=== PATIENT | female | born 1980 | race Caucasian/White ===

== ENCOUNTER 2019-10-08 11:23 | Emergency (ER) | payer BC ==
--- OUTSIDE RECORDS SUMMARY | 2019-10-08 11:26 | XMS REPORT ---
:1980 Author Organization [facility] t Address [address] [place] [address] [facility]. [address] [place] [address] Care Team Providers Name Role Phone DR MILAGRO Unavailable Unavailable Problems This patient has no known problems. Allergies, Adverse Reactions, Alerts This patient has no known allergies or adverse reactions. Medications This patient has no known medications. Results Test Description Test Time Test Comments Text Results Atomic Results Result Comments GLUCOMETER GLUCOSE- LAB USE ONLY 2017-04-08 05:26:00 Test Item Value Reference Range Comments GLUCOMETER (test code = GMG) 102 mg/dL 70-100 Met er ID: [id number]: [id number] GREGORY SHRESTHA URINE MONOCLONALFB2017-04-08 05:16:00 Test Item Value Reference Range Comments PREG UR (test code = PGU) NEGATIVE NEGATIVE
[2019-10-08 12:13] LABS: Basophils % 0.5 % (0-1.3); Hematocrit 45.5 % (36.0-45.0); Lymphocytes % 32.9 % (15.3-44.8); MPV 8.5 fL (7.6-11.3)
[2019-10-08 12:14] LABS: Protime INR 0.92
[2019-10-08 12:26] LABS: Urine Specific Gravity 1.025 (1.005-1.030)
[2019-10-08 12:26] LABS: Urine Blood NEGATIVE (NEG); Urine Glucose NEGATIVE (NEG); Urine Protein NEGATIVE (NEG); Urine Specific Gravity 1.025 (1.005-1.030); Urine pH 5.5 (5.0-7.0)
[2019-10-08 12:36] LABS: ALT/SGPT 36 U/L (12-78); AST/SGOT 22 U/L (15-37); Albumin 3.6 g/dL (3.4-5.0); Alkaline Phosphatase 57 U/L (45-117); BUN Blood Urea Nitrogen 15 mg/dL (7-18); Bicarbonate 24 mmol/L (21-32); Bilirubin Direct 0.1 mg/dL (0-0.2); Bilirubin Total 0.3 mg/dL (0.2-1.0); Glucose Level 116 mg/dL (74-106); Magnesium 2.1 mg/dL (1.8-2.4); Potassium 3.9 mmol/L (3.5-5.1); Protein, Total 8.1 g/dL (6.4-8.2); Sodium Level 139 mmol/L (136-145); Troponin (Emerg Dept Use Only) < 0.02 ng/mL (0.0-0.045)
[2019-10-08 12:43] LABS: Urine Bacteria 20-50 /HPF (<20); Urine Culture Reflex Order NOT NEEDED; Urine RBC <5 /HPF (NONE SEEN)
--- NOTE | 2019-10-08 12:44 | RAD REPORT ---
EXAM DESCRIPTION: Melonie Single View10/08/2019 12:39 pm CLINICAL HISTORY: Palpitations COMPARISON: none FINDINGS: The lungs appear clear of acute infiltrate. The heart is normal size IMPRESSION: No acute abnormalities displayed
[2019-10-08] MEDS ORDERED: NITROFURAN MACRO 100 MG CAP PO ONE (13:02)
[2019-10-08] MEDS ORDERED: PROPRANOLOL HCL 40 MG TAB PO ONE (13:15)
--- NOTE | 2019-10-08 15:36 | RAD REPORT ---
EXAM DESCRIPTION: CT - Chest For Pe Angio - 10/08/2019 3:06 pm CLINICAL HISTORY: sob COMPARISON: None. TECHNIQUE: Dynamically enhanced axial 3 mm thick images of the chest were obtained during administra tion of <100> mL Isovue 370 IV contrast. Coronal and oblique reconstruction images were generated and reviewed. Exam utilizes a protocol for optimal evaluation of pulmonary arterial tree. Maximum intensity projections 3D imaging was utilized All CT scans are performed using dose optimization technique as appropriate and may include automated exposure control or mA/KV adjustment according to patient size. FINDINGS: Some of the images are degraded by patient motion artifact A pulmonary embolus is not seen. A thoracic aortic aneurysm is not noted. A pleural effusion is not seen. A pericardial effusion is not seen. A lung consolidation is not present. 11 millimeter left thyroid nodule IMPRESSION: Negative for a pulmonary embolism. 11 millimeter left thyroid nodule. Ultrasound in 6 months recommended for re-evaluation
--- NOTE | 2019-10-08 15:47 | ER ---
Nurse's Notes [facility] Name: Kandi Valentine Age: 38 yrs Sex: Female : 1980 Arrival Date: 10/08/2019 Time: 11:25 Bed 13 Private MD: Diagnosis: Palpitations;Essential (primary) hypertension;Nontoxic single thyroid nodule Presentation: 10/07 11:42 Chief complaint: SOB, palpitations, and dizziness that started while seated 3 hrs ago. hb Coronavirus screen: Proceed with normal triage. Ebola Screen: No symptoms or risks identified at this time. Initial Sepsis Screen: Does the patient meet any 2 criteria? Systolic BP < 90 mmHg. No. Patient's initial sepsis screen is negative. Does the patient have a suspected source of infection? No. Patient's initial sepsis screen is negative. Risk Assessment: Do you want to hurt yourself or someone else? Patient reports no desire to harm self or others. Onset of symptoms was October 08, 2019. 11:42 Method Of Arrival: Wheelchair 11:42 Acuity: SD 3 hb Triage Assessment: 16:13 General: Appears in no apparent distress. Behavior is calm, cooperative. Respiratory: ll1 the patient has mild shortness of breath. Respiratory: Onset: The symptoms/episode began/occurred today, the patient has mild shortness of breath. HISTOLOGY TEACHER: 13:37 LMP N/A - control method ll1 Historical: - Allergies: 11:46 PENICILLINS; hb - Home Meds: 11:46 oral control [Active]; Zyzal [Active]; Omeprazole Oral [Active]; hb - PMHx: 11:46 GERD; hb - PSHx: 11:46 Ankle - Right; hb - Immunization history:: Adult Immunizations up to date. - Social history:: Smoking status: Patient denies any tobacco usage or history of. Screenin:20 Abuse screen: Denies threats or abuse. Nutritional screening: No deficits noted. ll1 Tuberculosis screening: No symptoms or risk factors identified. Fall Risk IV access (20 points). Total Ovalle Fall Scale indicates No Risk (0-24 pts). Assessment: 12:00 General: Appears in no apparent distress. Behavior is calm, cooperative, appropriate ll1 for age. Pain: Denies pain. Neuro: Level of Consciousness is awake, alert, obeys commands, Oriented to person, place, time, situation, Appropriate for age Pottery Decoration Designer are equal bilaterally Moves all extremities. Full function Gait is steady, Speech is normal, Facial symmetry appears normal, Pupils are PERRLA, Reports dizziness. Cardiovascular: Heart tones S1 S2 Capillary refill < 3 seconds Clubbing of nail beds is absent Patient's skin is warm and dry. Rhythm is regular. Respiratory: Reports shortness of breath intermettant Airway is patent Trachea midline Respiratory effort is even, unlabored, Respiratory pattern is regular, symmetrical, Breath sounds are clear bilaterally. GI: No deficits noted. : No deficits noted. 13:00 Reassessment: Patient appears in no apparent distress at this time. No changes from ll1 previously documented assessment. Patient and/or family updated on plan of care and expected duration. Pain level reassessed. Patient is alert, oriented x 3, equal unlabored respirations, skin warm/dry/pink. 14:00 Reassessment: Patient appears in no apparent distress at this time. No changes from ll1 previously documented assessment. Patient and/or family updated on plan of care and expected duration. Pain level reassessed. Patient is alert, oriented x 3, equal unlabored respirations, skin warm/dry/pink. 15:00 Reassessment: Patient appears in no apparent distress at this time. No changes from ll1 previously documented assessment. Patient and/or family updated on plan of care and expected duration. Pain level reassessed. Patient is alert, oriented x 3, equal unlabored respirations, skin warm/dry/pink. 16:00 Reassessment: Patient appears in no apparent distress at this time. No changes from ll1 previously documented assessment. Patient and/or family updated on plan of care and expected duration. Pain level reassessed. Patient is alert, oriented x 3, equal unlabored respirations, skin warm/dry/pink. Vital Signs: 11:42 BP 202 / 112; Pulse 90; Resp 16; Temp 98; Pulse Ox 100% on R/A; Weight 113.4 kg; Height hb 5 ft. 4 in. (162.56 cm); Pain 0/10; 12:00 BP 187 / 116; ll1 12:40 BP 170 / 96; Pulse 89; Resp 19; Pulse Ox 96% ; ll1 13:34 BP 177 / 103; Pulse 92; Resp 18; Pulse Ox 96% ; ll1 15:41 BP 171 / 118; Pulse 72; Resp 18; Pulse Ox 96% ; ll1 11:42 Body Mass Index 42.91 (113.40 kg, 162.56 cm) hb ED Course: 11:25 Patient arrived in ED. mr 11:34 EvanQuyeny, MG [facility]. snw 11:34 Pedro Duarte MD is Attending Physician. snw 11:45 Triage completed. hb 11:46 Arm band placed on. hb 11:49 Jaime Bueno, KWAN is Primary Nurse. ll1 11:55 Inserted saline lock: 20 gauge in right forearm, using aseptic technique. Blood ll1 collected. 12:20 Patient has correct armband on for positive identification. Bed in low position. Call ll1 light in reach. Side rails up X 1. pool technician on. Pulse ox on. NIBP on. 12:30 Warm blanket given. lt1 12:30 Urine Culture Sent. lt1 12:30 Urine Microscopic Only Sent. lt1 12:30 Urine collected: clean catch specimen, clear, EKG done, by solder technician. lt1 12:39 XRAY Chest (1 view) In Process Unspecified. EDMS 15:14 CT Chest For PE Angio In Process Unspecified. EDMS 16:12 IV discontinued, intact, bleeding controlled, No redness/swelling at site. Pressure ll1 dressing applied. 16:13 No provider procedures requiring assistance completed. ll1 Administered Medications: 13:19 Drug: Propranolol 40 mg Route: PO; ll1 14:21 Follow up: Response: No adverse reaction; RASS: Alert and Calm (0) ll1 13:19 Drug: Macrobid 100 mg Route: PO; ll1 14:21 Follow up: Response: No adverse reaction; RASS: Alert and Calm (0) ll1 15:54 Drug: cloNIDine 0.2 mg Route: PO; ll1 16:09 Follow up: Response: No adverse reaction ll1 Outcome: 15:46 Discharge ordered by . snw 16:13 Discharged to home ambulatory. ll1 16:13 Condition: stable 16:13 Discharge instructions given to patient, Instructed on discharge instructions, follow up and referral plans. medication usage, Demonstrated understanding of instructions, follow-up care, medications, Prescriptions given X 1. 16:14 Patient left the ED. ll1 Signatures: Dispatcher [employer] EDME Isa Gordon, GOLF COURSE DESIGNER-C GOLF COURSE DESIGNER-Csnw Rebel Meli Katherin Rangel, RN RN Lanie Perez 1 Jaime Bueno RN RN ll1
--- NOTE | 2019-10-08 15:48 | EDPHYS ---
Physician Documentation [facility] Name: Kandi Valentine Age: 38 yrs Sex: Female : 1980 Arrival Date: 10/08/2019 Time: 11:25 Bed 13 Private MD: ED Physician Pedro Duarte HPI: 10/07 14:18 This 38 yrs old Female presents to ER via Wheelchair with complaints of snw Palpitations, Shortness Of Breath, High Blood Pressure, Dizziness. 14:18 The patient presents with a history of irregular heart beat, heart racing. Context: The snw symptoms occur at rest. Onset: The symptoms/episode began/occurred suddenly, just prior to arrival. Duration: The patient or guardian reports multiple episodes. Associated signs and symptoms: Pertinent positives: lightheadedness, SOB. Severity of symptoms: At their worst the symptoms were moderate. The patient has experienced a previous episode, but today's symptoms are worse. It is unknown whether or not the patient has recently seen a physician. TYPE COPY EXAMINER: 13:37 LMP N/A - control method ll1 Historical: - Allergies: 11:46 PENICILLINS; hb - Home Meds: 11:46 oral control [Active]; Zyzal [Active]; Omeprazole Oral [Active]; hb - PMHx: 11:46 GERD; hb - PSHx: 11:46 Ankle - Right; hb - Immunization history:: Adult Immunizations up to date. - Social history:: Smoking status: Patient denies any tobacco usage or history of. ROS: 14:17 Constitutional: Negative for fever, chills, and weight loss, Eyes: Negative for injury, snw pain, redness, and discharge, ENT: Negative for injury, pain, and discharge, Neck: Negative for injury, pain, and swelling, Cardiovascular: Negative for chest pain and edema. 14:17 Abdomen/GI: Negative for abdominal pain, nausea, vomiting, diarrhea, and constipation, Back: Negative for injury and pain, : Negative for injury, bleeding, discharge, and swelling, MS/Extremity: Negative for injury and deformity, Skin: Negative for injury, rash, and discoloration, Neuro: Negative for headache, weakness, numbness, tingling, and seizure. 14:17 Cardiovascular: Positive for palpitations. 14:17 Respiratory: Positive for shortness of breath. Exam: 13:34 Constitutional: This is a well developed, obese patient who is awake, alert, and in no snw acute distress. Head/Face: Normocephalic, atraumatic. Eyes: Pupils equal round and reactive to light, extra-ocular motions intact. Lids and lashes normal. Conjunctiva and sclera are non-icteric and not injected. Cornea within normal limits. Periorbital areas with no swelling, redness, or edema. ENT: Nares patent. No nasal discharge, no septal abnormalities noted. Tympanic membranes are normal and external auditory canals are clear. Oropharynx with no redness, swelling, or masses, exudates, or evidence of obstruction, uvula midline. Mucous membranes moist. Neck: Trachea midline, no thyromegaly or masses palpated, and no cervical lymphadenopathy. Supple, full range of motion without nuchal rigidity, or vertebral point tenderness. No Meningismus. Chest/axilla: Normal chest wall appearance and motion. Nontender with no deformity. No lesions are appreciated. 13:34 Abdomen/GI: Soft, non-tender, with normal bowel sounds. No distension or tympany. No guarding or rebound. No evidence of tenderness throughout. Back: No spinal tenderness. No costovertebral tenderness. Full range of motion. Skin: Warm, dry with normal turgor. Normal color with no rashes, no lesions, and no evidence of cellulitis. MS/ Extremity: Pulses equal, no cyanosis. Neurovascular intact. Full, normal range of motion. Neuro: Awake and alert, GCS 15, oriented to person, place, time, and situation. Cranial nerves II-XII grossly intact. Motor strength 5/5 in all extremities. Sensory grossly intact. Cerebellar exam normal. Normal gait. Psych: Awake, alert, with orientation to person, place and time. Behavior, mood, and affect are within normal limits. 13:34 Cardiovascular: Rate: normal, Heart sounds: normal. 13:34 ECG was reviewed by the Attending Physician. 13:34 Respiratory: the patient does not display signs of respiratory distress, Respirations: shallow respirations, Breath sounds: are clear throughout. Vital Signs: 11:42 BP 202 / 112; Pulse 90; Resp 16; Temp 98; Pulse Ox 100% on R/A; Weight 113.4 kg; Height hb 5 ft. 4 in. (162.56 cm); Pain 0/10; 12:00 BP 187 / 116; ll1 12:40 BP 170 / 96; Pulse 89; Resp 19; Pulse Ox 96% ; ll1 13:34 BP 177 / 103; Pulse 92; Resp 18; Pulse Ox 96% ; ll1 15:41 BP 171 / 118; Pulse 72; Resp 18; Pulse Ox 96% ; ll1 11:42 Body Mass Index 42.91 (113.40 kg, 162.56 cm) hb MDM: 11:55 Patient medically screened. snw 14:38 Data reviewed: vital signs, nurses notes. Data interpreted: Pulse oximetry: on room air snw is 96 %. Interpretation: acceptable. Counseling: I had a detailed discussion with the patient and/or guardian regarding: the historical points, exam findings, and any diagnostic results supporting the discharge/admit diagnosis, the presence of at least one elevated blood pressure reading (>120/80) during this emergency department visit, lab results, radiology results, the need for outpatient follow up, to return to the emergency department if symptoms worsen or persist or if there are any questions or concerns that arise at home. Special discussion: I have referred the patient to see his PCP for further evaluation of high blood pressure. Based on the history and exam findings, there is no indication for further emergent testing or inpatient evaluation. I discussed with the patient/guardian the need to see the primary care provider for further evaluation of the symptoms. 10/07 11:56 Order name: Basic Metabolic Panel snw 10/07 11:56 Order name: CBC with Diff w 10/07 11:56 Order name: LFT's; Complete Time: 12:45 snw 10/07 11:56 Order name: Magnesium; Complete Time: 12:45 snw 10/07 11:56 Order name: PT-INR; Complete Time: 12:17 snw 10/07 11:56 Order name: Troponin (emerg Dept Use Only); Complete Time: 12:45 snw 10/07 11:56 Order name: Urine Culture snw 10/07 11:56 Order name: Urine Microscopic Only; Complete Time: 12:45 snw 10/07 11:57 Order name: Basic Metabolic Panel; Complete Time: 12:45 EDMS 10/07 11:57 Order name: CBC with Automated Diff; Complete Time: 12:17 EDMS 10/07 12:08 Order name: TSH snw 10/07 12:09 Order name: Thyroid Stimulating Hormone; Complete Time: 13:08 EDMS 10/07 12:20 Order name: Urine Dipstick--Ancillary (enter results); Complete Time: 12:45 lt1 10/07 12:25 Order name: Urine --Ancillary (enter results); Complete Time: 12:45 lt1 10/07 11:56 Order name: XRAY Chest (1 view); Complete Time: 12:49 snw 10/07 11:56 Order name: EKG; Complete Time: 11:57 snw 10/07 11:56 Order name: Cardiac monitoring; Complete Time: 13:20 snw 10/07 11:56 Order name: EKG - Nurse/Tech; Complete Time: 13:20 snw 10/07 11:56 Order name: IV Saline Lock; Complete Time: 13:20 snw 10/07 11:56 Order name: Labs collected and sent; Complete Time: 13:20 snw 10/07 11:56 Order name: O2 Per Protocol; Complete Time: 13:20 snw 10/07 11:56 Order name: O2 Sat Monitoring; Complete Time: 13:20 snw 10/07 11:56 Order name: Urine Test (obtain specimen); Complete Time: 12:29 snw 10/07 11:56 Order name: Urine Dipstick-Ancillary (obtain specimen); Complete Time: 12:29 snw 10/07 14:37 Order name: CT Chest For PE Angio; Complete Time: 15:40 snw Administered Medications: 13:19 Drug: Propranolol 40 mg Route: PO; ll1 14:21 Follow up: Response: No adverse reaction; RASS: Alert and Calm (0) ll1 13:19 Drug: Macrobid 100 mg Route: PO; ll1 14:21 Follow up: Response: No adverse reaction; RASS: Alert and Calm (0) ll1 15:54 Drug: cloNIDine 0.2 mg Route: PO; ll1 16:09 Follow up: Response: No adverse reaction ll1 Disposition: 17:29 Co-signature as Attending Physician, Pedro Duarte MD. rn Disposition: 10/08/19 15:46 Discharged to Home. Impression: Palpitations, Essential (primary) hypertension, Nontoxic single thyroid nodule. - Condition is Stable. - Discharge Instructions: Hypertension, Palpitations, Thyroid Nodule, How to Take Your Blood Pressure, Scyw-bp-Veyv, Rehydration, Adult, Managing Your Hypertension, Form - Blood Pressure Record Sheet. - Prescriptions for Propranolol 20 mg Oral Tablet - take 1 tablet by ORAL route every 6 hours; 100 tablet. - Work release form, Medication Reconciliation Form, Thank You Letter, Antibiotic Education, Prescription Opioid Use form. - Follow up: Emergency Department; When: As needed; Reason: Trouble breathing, Worsening of condition. Follow up: Private Physician; When: 2 - 3 days; Reason: Recheck today's complaints, Continuance of care, Re-evaluation by your physician. Signatures: Dispatcher [employer] EDMS Isa Gordon, FIORELLA-C INSTRUMENT INSPECTOR-Csnw Pedro Duarte MD MD rn Baxter, Heather, RN RN hb Lewis, Lynsay, RN RN ll1 Corrections: (The following items were deleted from the chart) 16:14 15:46 10/08/2019 15:46 Discharged to Home. Impression: Palpitations; Essential ll1 (primary) hypertension; Nontoxic single thyroid nodule. Condition is Stable. Forms are Medication Reconciliation Form, Thank You Letter, Antibiotic Education, Prescription Opioid Use. Follow up: Emergency Department; When: As needed; Reason: Trouble breathing, Worsening of condition. Follow up: Private Physician; When: 2 - 3 days; Reason: Recheck today's complaints, Continuance of care, Re-evaluation by your physician. snw
[2019-10-08] MEDS ORDERED: cloNIDine HCL 0.1 MG TAB ONE (15:56)
--- NOTE | 2019-10-08 16:23 | EKG ---
Test Date: 2019-10-08 Test Time: 12:29:26 Track Mechanic: JAG MEASUREMENT RESULTS: Intervals: Rate: 79 OK: 124 QRSD: 86 QT: 374 QTc: 428 [place]: P: 41 OK: 124 QRS: 33 T: 0 INTERPRETIVE STATEMENTS: Normal sinus rhythm with sinus arrhythmia Normal ECG Compared to ECG 11/08/2016 11:26:00 Short OK interval no longer present Electronically Signed On 10-08-19 16:22:02 CDT by Bradly Montejo
[2019-10-08 16:34] VITALS: TEMP 98
[2019-10-08 16:43] VITALS: O2SAT 96
[2019-10-08 16:48] VITALS: BP 171/118
== END 2019-10-08 16:14 | disposition home or self-care (01) ==
LOC: ER 11:23
DX: R00.2 Palpitations (principal); I10 Essential (primary) hypertension; E04.1 Nontoxic single thyroid nodule; Z88.0 Allergy status to penicillin
CPT/HCPCS: 93005; 87088; 85025; 87086; 80048; 36415; 83735; 81025; 85610; 80076; 84443; 84484; 71275; 71045; Q9967; 81003; 81015